=== PATIENT | female | born 1990 | race Caucasian/White ===

== ENCOUNTER 2025-07-28 16:59 | Emergency (ER) | payer OTHER, SELFPAY ==
[2025-07-28 17:02] VITALS: BP 149/106
[2025-07-28 18:36] VITALS: BP 129/95
[2025-07-28 19:00] VITALS: BP 132/87
--- NOTE | 2025-07-28 19:30 | ED.GENMED ---
History of Present Illness
General
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
Source: patient
Exam Limitations: none
Time Seen by Provider: 07/28/25 18:37
Nursing documentation reviewed up to this point in time: agreed with
History of Present Illness
History of Present Illness:
Patient is a 35-year-old female presents to the ER for evaluation. Patient reports she recently developed a yeast infection after being on Keflex for rosacea. She was given Diflucan and took 2 doses. She then developed bumps to the labia and was
diagnosed and now folliculitis and yeast infection at urgent care and was placed on topical antifungals and given prednisone. She only took 2 days of prednisone. She does complain of discomfort and increasing bumps to the labia area. She reports
they do burn. She is not sexually active. She reports she has not been sexually active in the past 3 years.
She denies any fever chills/abd pain She also complains of a white coating on her tongue since taking antibiotics.
She denies any fever
Phy Exam
General Physical Exam
General Presentation: no apparent distress
General age: appears stated age
General Skin: warm and dry
General Habitus: normal
General Mental: alert
General Hydration: appears well hydrated
Gastrointestinal Exam
Gastrointestinal Exam: non tender and soft
Genitourinary Exam Female
Exam Female: other (Small scattered bumps to bilateral labia)
Neurological Exam
Neurological Exam: alert, oriented x3 and other (small bumps to b/l labia )
Musculoskeletal Exam
Musculoskeletal Exam: full ROM
Skin Exam
Skin Exam: normal color and warm/dry
Psychiatric Exam
Psychiatric Exam: normal mood/affect
Course
Orders/Labs/Results
Orders:
Orders
07/28/25 19:31
Test Result ONCE
07/28/25 20:18
Herpes Simplex Vir Subtype PCR [S] Urgent
Herpes Source: Vesicular Fluid
UA Reflex to Culture [Urinalysis Reflex To Culture] Urgent
Date Specimen was Collected: 07/28/25
Time Specimen was Collected: 20:10
07/28/25 20:22
Cephalexin Monohydrate [Keflex] 500 mg PO NOW STA
07/28/25 20:30
Acyclovir [Zovirax] 400 mg PO NOW STA
07/28/25 20:35
Nystatin Suspension [Mycostatin Oral Suspension] 5 ml PO NOW STA
07/28/25 20:37
Test Result ONCE
07/28/25 20:38
Urine,Hcg qualitative screen [HCG, Urine Qualitative Screen] Urgent
Date Specimen was Collected: 07/28/25
Time Specimen was Collected: 20:37
07/28/25 20:43
Nystatin Suspension [Mycostatin Oral Suspension] 5 ml PO NOW STA
07/28/25 22:00
Nystatin Suspension [Mycostatin Oral Suspension] 5 ml PO QID
Vital Signs
Initial and Last Documented VS:
Initial Vital Signs
Temp Pulse Resp BP Pulse Ox
97.9 F 88 18 149/106 100
07/28/25 17:02 07/28/25 17:02 07/28/25 17:02 07/28/25 17:02 07/28/25 17:02
Last Documented Vital Signs
Temp Pulse Resp BP Pulse Ox
97.9 F 88 18 119/84 99
07/28/25 17:02 07/28/25 17:02 07/28/25 17:02 07/28/25 20:00 07/28/25 19:31
MDM/Problems Addressed
Differential Diagnosis Includes:
Not limited to folliculitis, herpes, thrush
MDM/Problems Addressed:
As documented patient is a 35-year-old female who presents ER for evaluation. Patient was on doxycycline for rosacea then developed a yeast infection was treated with 2 tablets of Diflucan and antifungal cream. Now she presents with bumps to the
labial area which has worsened. She was diagnosed with folliculitis however symptoms have increased which prompted patient to come to the ER. She is presently visiting from [place]. She denies any vaginal discharge she is not sexually active the
past 3 years. In addition to this she has had a white discoloration of her tongue
On exam patient has visible bumps to the labia no obvious vesicles however herpes culture performed patient does complain of discomfort when she urinates over these areas .case discussed with ED physician will treat for possible acyclovir culture
taken in addition will prescribe Keflex for possible folliculitis along with nystatin for oral thrush. Patient is nontoxic hCG negative urine negative will have patient follow-up with family practice clinic since she is out of town
Called by nurse to see patient patient wishes to hold off on taking antiviral and antibiotics until seen by family practice clinic. She is going back to [place] next week I did advise her to call her PATTERN ILLUSTRATOR to get an appointment for when she goes
back home. She is otherwise very well-appearing in no acute distress afebrile.
*Pulse Oximetry
SaO2: 99
Oxygen Mode of Delivery: Room air
Patient hypoxic: no
*Critical Care Note
Total Time (30-74mins, 75-104mins- exclusive of procedures): Not Applicable
ED Attending Note
-
Portions of this chart may have been created with voice recognition software.� Occasional wrong word or��sound alike� substitutions may have occurred due to the inherent limitations of voice recognition software.
Discharge Plan
Departure
Patient Disposition: Home (Routine Discharge)
Date of Disposition: 07/28/25
Time of Disposition: 21:00
Patient with high blood pressure during this ER visit?: Yes
Condition: Fair
Covid-19: Not Applicable
Discharge Problem:
Folliculitis
Instructions: BLOOD PRESSURE
Prescriptions:
New
cephalexin 500 mg capsule
500 mg PO Q6H Qty: 28 0RF
acyclovir 400 mg tablet
400 mg PO TID Qty: 21 0RF
nystatin 100,000 unit/mL suspension
5 ml PO QID Qty: 250 0RF
Referrals:
Yen Forrester [Other]
[facility] [Outside]
NONE,* [Family Provider, Internal Medicine]
Activity Restrictions/Additional Instructions:
As discussed you will be given several prescriptions, an oral antibiotic for folliculitis ; and antiviral for possible herpes and nystatin for oral thrush. Please follow-up with family practice clinic in the next 2 days call tomorrow to make an
appointment. Your herpes cultures will be pending. Return to the ER for any worsening of symptoms include increasing pain fever chills discharge.
Interventions
Interventions:
*Risk Screen - Suicide Last Done: 07/28/25 17:02
*General Assessment Last Done: 07/28/25 17:02
*Neglect/Abuse Screening Last Done: 07/28/25 17:02
*ED- Fall Risk Assessment Last Done: 07/28/25 18:31
*ED COVID-19 Vaccine History Last Done: 07/28/25 18:31
ED-Female Genitourinary Assessment Last Done: 07/28/25 19:15
ED-Skin Assessment Last Done: 07/28/25 19:15
Discharge Date and Time
Print Language: NEPALESE
[2025-07-28 20:00] VITALS: BP 119/84
[2025-07-28 20:48] LABS: HCG, Urine Qualitative Screen Negative
[2025-07-28 20:52] LABS: Urine Character Slightly Cloudy (Clear)
[2025-07-28] MEDS: MYCOSTATIN ORAL SUSPENSION 5 ML PO (21:04)
== END 2025-07-28 21:42 | disposition home or self-care (01) ==
LOC: EMR 16:59
PROVIDERS: Nurse Practitioner; EMERGENCY PHYSICIAN Emergency Medicine
DX: L73.9 Follicular disorder, unspecified (principal); L71.9 Rosacea, unspecified; Z79.899 Other long term (current) drug therapy
CPT/HCPCS: 99283; 81003; 81025; 87529